=== PATIENT | female | born 1975 | race Caucasian/White ===

== ENCOUNTER 2018-11-04 22:58 | Emergency (ER) | payer SELFPAY ==
[~2018-11-04 22:58] MED LIST: Iopamidol 370 76% 100 ML VIAL ONE
[2018-11-04 23:34] LABS: Prothrombin Time 13.3 SEC (12.0-14.7)
[2018-11-04 23:36] LABS: BHCG - Serum Negative (NEGATIVE); Pregs Control Background? CLEAR/WHITE (CLR/WHITE); Pregs Control Bar Appear? YES (CONTROL BAR)
[2018-11-04 23:38] LABS: Hemoglobin 13.8 g/dL (12.0-16.0); MDiff Complete? YES; Macrocytosis MODERATE=16-30 cells (100X) (0-5/hpf); Mean Corpuscular HGB CONC 32.8 g/dL (32.0-36.0); Mean Corpuscular Volume 106.6 fL (78.0-98.0); Mean Platelet Volume 8.6 fL (7.4-10.4); Platelet Count 152 thou/uL (130-400); Platelet Morphology Comment Appears Adequate; Red Blood Cell (RBC) Count 3.94 mill/uL (4.20-5.40); White Blood Cell (WBC) Count 4.7 thou/uL (4.8-10.8)
[2018-11-04 23:44] LABS: ALT (SGPT) 83 U/L (8-55); AST (SGOT) 186 U/L (5-34); Albumin 4.3 g/dL (3.5-5.0); Alcohol 374 mg/dL (Less than 10); Alkaline Phosphatase 71 U/L (40-150); Anion Gap 25 mmol/L (10-20); BUN (Urea Nitrogen) 5 mg/dL (7.0-18.7); Bilirubin, Total 0.7 mg/dL (0.2-1.2); Calc. Creatinine Clearance 0 mL/min (70-130); Carbon Dioxide 19 mmol/L (22-29); Chloride 103 mmol/L (98-107); Estimated GFR-MDRD Greater than 90; Glucose 87 mg/dL (70-105); Protein, Total 7.3 g/dL (6.0-8.3); Sodium 144 mmol/L (136-145)
--- NOTE | 2018-11-04 23:54 | CT ---
CT HEAD WITHOUT CONTRAST: 11/04/18 Multiple axial tomograms obtained through the head without IV enhancement. INDICATIONS: Injury. There is cortical volume loss which is more prominent than expected for age. Volume loss is especiall y prominent involving the parietal lobes. There is no mass or hemorrhage. No acute infarct. Sinuses a nd mastoids are clear. IMPRESSION: Abnormal cortical volume loss for age involving frontal and parietal lobes. Consider neurological con sultation. No acute process apparent. POS: [facility]
--- NOTE | 2018-11-04 23:54 | CT ---
CT CERVICAL SPINE: 11/04/18 Multiple axial tomograms obtained through the cervical spine with multiplanar reconstruction. Cervical vertebrae maintain normal height and alignment. No evidence of acute fracture identified. IMPRESSION: No acute fracture. POS: [facility]
--- NOTE | 2018-11-05 00:02 | CT ---
CT CHEST, ABDOMEN AND PELVIS WITH CONTRAST: 11/04/18 Multiple axial tomograms obtained through the chest, abdomen and pelvis with IV contrast following [facility] protocol. HISTORY: Trauma. CT CHEST: The lungs appear clear. There is no evidence of infiltrate or pneumothorax. Mediastinum unremarkable. Review of the bony thorax reveals displaced fracture of the left clavicle. There is subcutaneous cont usion in this region. No definite rib fracture identified. IMPRESSION: Displaced fracture left clavicle. No other chest injury identified. CT ABDOMEN AND PELVIS: The liver shows low attenuation suggesting fatty infiltration. There is an area of increased attenuat ion in the lower right lobe which may represent a focal area of fatty sparring. This does not have th e appearance of focal injury or hematoma. The spleen appears unremarkable. The pancreas and kidneys a re unremarkable. Small bowel loops appear normal. Nonspecific mural thickening of the right colon. Transverse and left colon unremarkable although nond istended. Urinary bladder is intact. No free fluid in the abdomen or pelvis. Abdominal aorta unremark able. Bony pelvis appears intact. IMPRESSION: No evidence of acute intra-abdominal injury. CT THORACIC AND LUMBAR SPINE: Sagittal and coronal images of the thoracic and lumbar spine obtained. Thoracic and lumbar vertebrae maintain normal height and alignment. No evidence of compression or acute fracture identified. IMPRESSION: No evidence of acute thoracic or lumbar spine fractures. POS: [facility]
[2018-11-05] MEDS ORDERED: Acetaminophen 500 MG TAB ONE ×2 (04:32)
[2018-11-05] MEDS ORDERED: Dextrose 5 %-0.45 % NaCl 1,000 ML ONE (08:55)
[2018-11-05] MEDS ORDERED: Thiamine HCl 200 MG/2 ML VIAL ONE (08:55)
[2018-11-05] MEDS ORDERED: Multivit, Adult Inj 10 ML VIAL ONE (08:55)
[2018-11-05 09:23] LABS: Bilirubin Negative (Negative); Blood, Urine Trace (Negative); Glucose, Urine (Dipstick) Negative (Negative); Leukocyte Negative (Negative); Nitrite Positive (Negative); Protein, Urine (Dipstick) 30 mg/dL (Neg-Trace); Urobilinogen 0.2 mg/dL (0.2-1.0)
[2018-11-05 09:26] LABS: Clarity Cloudy (Clear)
[2018-11-05 09:28] LABS: Bacteria/HPF 3+ HPF (None Seen); RBC/HPF 0-3 HPF (0-3); WBC/HPF 0-3 HPF (0-3)
[2018-11-05] MEDS ORDERED: Lorazepam 2 MG/ML VIAL ONE ×2 (09:56→11:02)
[2018-11-05] MEDS ORDERED: Potassium Chloride 10 MEQ TAB ONE (09:56)
[2018-11-05 11:02] LABS: ALT (SGPT) 80 U/L (8-55); AST (SGOT) 160 U/L (5-34); Albumin 4.4 g/dL (3.5-5.0); Alkaline Phosphatase 75 U/L (40-150); Anion Gap 30 mmol/L (10-20); BUN (Urea Nitrogen) 6 mg/dL (7.0-18.7); Bilirubin, Total 0.9 mg/dL (0.2-1.2); Calc. Creatinine Clearance 0 mL/min (70-130); Calcium 8.7 mg/dL (7.8-10.44); Carbon Dioxide 15 mmol/L (22-29); Chloride 99 mmol/L (98-107); Estimated GFR-MDRD Greater than 90; Globulin 3.1 g/dL (2.4-3.5); Glucose 82 mg/dL (70-105); Potassium 3.9 mmol/L (3.5-5.1); Protein, Total 7.5 g/dL (6.0-8.3); Sodium 140 mmol/L (136-145)
== END 2018-11-05 11:50 | disposition short-term general hospital (02) ==
LOC: MADERS 22:58
DX: S42.002A Fracture of unspecified part of left clavicle, initial encounter for closed fracture (principal); S20.219A Contusion of unspecified front wall of thorax, initial encounter; F10.239 Alcohol dependence with withdrawal, unspecified; F10.229 Alcohol dependence with intoxication, unspecified; Y90.8 Blood alcohol level of 240 mg/100 ml or more; G31.9 Degenerative disease of nervous system, unspecified; K70.10 Alcoholic hepatitis without ascites; E87.2 Acidosis; E87.6 Hypokalemia; V43.52XA Car driver injured in collision with other type car in traffic accident, initial encounter
CPT/HCPCS: 36415; 70450; 71260; 72125; 74177; 80053; 80307; 81003; 81015; 83735; 84703; 85025; 85610; 93005; 96365; 96366; 96375; 96376; G0390; J2060; J3411; J7042; Q9967